=== PATIENT | female | born 1990 | race Caucasian/White ===

== ENCOUNTER 2018-02-06 08:26 | Emergency (ER) | payer OTHER ==
[~2018-02-06] VITALS: Ht 175.3 cm; Wt 127.0 kg
[~2018-02-06 08:26] MED LIST: AMOXICILLIN 50500 M1 PO; AMOXICILLIN 50500 MG PO; AMOXICILLIN875 MG PO; BENTYL20 MG PO; CIPRO250 MG PO; FLEXERIL PO; FLONASE 0.05%50 MCG NS; IBUPROFEN 800800 M1 PO; MOBIC15 MG PO; NOHOMEMEDICATIONS; PHENERGAN 25 MG25 M1 PO; PHENERGAN 25 MG25 MG PO; ZPAK PO
[2018-02-06 08:38] VITALS: BP 121/73
[2018-02-06] MEDS ORDERED: MOBIC15 MG PO (09:26)
== END 2018-02-06 10:26 | disposition home or self-care (01) ==
LOC: ER 08:26
DX: S93.402A Sprain of unspecified ligament of left ankle, initial encounter (principal); W19.XXXA Unspecified fall, initial encounter; Y93.01 Activity, walking, marching and hiking; Y92.89 Other specified places as the place of occurrence of the external cause; Y99.8 Other external cause status